=== PATIENT | male | born 1970 | race Caucasian/White ===

== ENCOUNTER → 2017-12-07 09:43 | Outpatient (CLI) | payer MEDICARE, SELFPAY ==
[2017-12-07 11:11] LABS: Rheumatoid Factor < 10.0 IU/mL (<15); Thyroid Stim Hormone (TSH) 2.73 uIU/mL (0.358-3.74)
[2017-12-08 09:45] LABS: Vitamin B12 188 pg/mL (211-911)
[2017-12-08 12:08] LABS: SJOGREN'S Anti-SS-A test < 0.2 AI (0.0-0.9); SJOGREN'S Anti-SS-B test < 0.2 AI (0.0-0.9)
[2017-12-08 14:34] LABS: ANTINUCLEAR ANTIBODIES DIRECT Negative (Negative)
[2017-12-08 16:09] LABS: Albumin 3.6 g/dL (2.9-4.4); Alpha-1-Globulins 0.2 g/dL (0.0-0.4); Alpha-2-Globulins 0.7 g/dL (0.4-1.0); Cytoplasmic Ab (C-ANCA) <1:20 titer (Neg:<1:20); Gamma Globulin 1.1 g/dL (0.4-1.8); Immunoglobulin A 276 mg/dL (90-386); Immunoglobulin G 1091 mg/dL (700-1600); Immunoglobulin M 101 mg/dL (20-172); PROEL- TOTAL PROTEIN 6.8 g/dL (6.0-8.5)
[2017-12-09 12:30] LABS: Perinuclear Ab (P-ANCA) <1:20 titer (Neg:<1:20)
== END ==
PROVIDERS: Family Provider Nurse Practitioner Family; PCP Nurse Practitioner Family; Visit Provider Psychiatry & Neurology Neurology
DX: G62.9 Polyneuropathy, unspecified (principal); Z79.899 Other long term (current) drug therapy
CPT/HCPCS: 36415; 82607; 82784; 83036; 84165; 84166; 84443; 86038; 86235; 86256; 86334; 86335; 86431

== ENCOUNTER → 2018-03-23 08:02 | Outpatient (CLI) | payer MEDICARE, SELFPAY ==
--- NOTE | 2018-03-23 09:43 | NEURO_ITS ---
NCS and/or EMG Patient Report Ordering Doctor: Torres Echeverria DATE OF SERVICE: 03/23/18 This is a bilateral lower extremity nerve conduction study and a right lower extremity EMG performed on this 48-year-old male with a remote history 18 years ago of a C5 injury with residual mild left-sided para-cysts. For the past year he has experienced nonspecific uncomfortable sensations in his feet on both sides symmetrically, improved temporarily with compression stockings. He says he is a borderline diabetic but is not sure of the numbers. He does admit to drinking alcohol occasionally to excess. Bilateral lower extremity nerve conduction study is performed. Sensory responses are intact bilaterally. The medial and lateral plantar responses are evaluated, the lateral plantar responses are absent bilaterally. Common peroneal motor and tibial motor distal latencies amplitudes and conduction velocities are intact. Tibial and common peroneal F waves are intact bilaterally, and the tibial H reflexes bilaterally are preserved. Right lower extremity needle electromyography is performed. Muscles evaluated included the extensor digitorum brevis, abductor hallicis, medial gastrocnemius , anterior tibialis, vastus lateralis and vastus medialis muscles. All muscles demonstrated normal insertional activity with absence of pathologic spontaneous activity. Motor unit potential movement pattern and amplitude is intact in all muscles tested. Impression: This is an essentially normal electrophysiologic study of the lower extremities however symptoms are consistent with mild likely small fiber neuropathy. This may be exacerbated by blood sugar abnormalities and/or significant alcohol intake.
== END ==
LOC: PSN 08:02
PROVIDERS: Family Provider Nurse Practitioner Family; PCP Nurse Practitioner Family; Visit Provider Psychiatry & Neurology Neurology
DX: G62.9 Polyneuropathy, unspecified (principal); R20.2 Paresthesia of skin; R20.0 Anesthesia of skin
CPT/HCPCS: 95886; 95912

== ENCOUNTER → 2018-11-01 07:05 | Outpatient (CLI) | payer MEDICARE, SELFPAY ==
--- NOTE | 2018-11-01 10:43 | NEURO ---
NCS and/or EMG Patient Report Ordering Doctor: Leonides Boateng DATE OF SERVICE: 11/01/18 This is a right upper extremity EMG and nerve conduction study performed on this 48-year-old male with a remote history of C5 injury. He now reports symptoms consistent with Raynaud's syndrome in his right index finger and borderline diabetes. Symptoms have been present for approximately 2 months. In February 2018 he underwent electrophysiology studies of his lower extremities which were normal however symptoms were felt to be consistent with small fiber neuropathy potentially exacerbated by blood sugar abnormalities and alcohol intake. Right upper extremity sensory motor nerve conduction studies performed demonstrating prolongation of the median motor and sensory distal latencies with mild reduction of the motor amplitudes and mild reduction of conduction velocities. The ulnar motor amplitudes across the elbow are reduced with reduced conduction velocities across the elbow and prolonged latencies across the elbow. The median and ulnar F-wave latencies demonstrate prolongation of the median F wave latency. Right upper extremity needle electrode mammography is performed. Muscles evaluated included the abductor pollicis brevis, first dorsal interosseous, brachioradialis, biceps, triceps and deltoid muscles. The abductor pollicis brevis as well as first dorsal interosseous muscles demonstrated large motor units however abnormal insertional activity was absent and pathologic spontaneous activity was absent. All other muscles tested were normal. There is no evidence of C8 radiculopathy. Impression: This is an abnormal elective his like study of the right upper tremor to consistent with both a moderate median neuropathy at the wrist as well as moderate ulnar neuropathy at the elbow. The presence of borderline blood sugar abnormalities as well as significant alcohol intake may be contributory factors.
== END ==
PROVIDERS: Family Provider Nurse Practitioner Family; PCP Nurse Practitioner Family; Referring Provider Nurse Practitioner Family; Visit Provider Nurse Practitioner Family
DX: R20.0 Anesthesia of skin (principal)
CPT/HCPCS: 95886; 95909

== ENCOUNTER 2020-04-02 06:29 | Emergency (ER) | payer MEDICARE, SELFPAY ==
--- NOTE | 2020-04-02 06:34 | CT_ITS ---
HISTORY: FALL, CONFUSION ADDITIONAL HISTORY: None provided. COMPARISON: None EXAMINATION/TECHNIQUE: CT Head or Brain W/O Contrast Injection. Axial, coronal and sagittal images. Number of images including paperwork: 252. A radiation dose optimization technique was used for this scan. FINDINGS: BRAIN: No acute hemorrhage or mass. No definite acute infarct; MRI more sensitive. VENTRICULAR SYSTEM: No hydrocephalus. PARANASAL SINUSES AND MASTOIDS: Partial desiccation of the frontal, ethmoid and sphenoid sinuses. Small mucus retention cyst versus polyp in the left maxillary sinus. ORBITS: Unremarkable imaged extent. SKELETON AND SOFT TISSUES: Calvarium intact. ASPECTS score: Not applicable. CT/Brain/Head without Contrast IMPRESSION: No acute intracranial abnormality. Paranasal sinus disease. Individualized dose optimization techniques were used for this CT. at 0719 Reported and signed by: Destiney Segundo MD Electronically Signed: Destiney Segundo MD at 7:19 EDT Tel , Service support ,
--- NOTE | 2020-04-02 06:36 | CT_ITS ---
HISTORY: FALL, CONFUSION ADDITIONAL HISTORY: None provided COMPARISON: None TECHNIQUE: Noncontrast CT images of the cervical spine. 2D images were reviewed to aid in assessment of the cervical spine. A radiation dose optimization technique was used for this scan. Number of images including paperwork: [id number] FINDINGS: BONES: No acute fracture. No suspicious bone lesion. VERTEBRAL ALIGNMENT: No traumatic subluxation. Loss of normal cervical lordosis. DISCS AND JOINTS: C4-6 ACDF. Mild degenerative changes elsewhere. SPINAL CANAL AND FORAMINA: No critical canal stenosis. SOFT TISSUES: No prevertebral soft tissue swelling. No pathologic-appearing cervical adenopathy. LUNG APICES: Unremarkable. PARANASAL SINUSES: Unremarkable imaged portions if any. CT/Spine Cervical without Contras IMPRESSION: No acute osseous abnormality. Loss of normal cervical lordosis may be related to positioning or muscle spasm. Postoperative and degenerative changes. Individualized dose optimization techniques were used for this CT. at 0722 Reported and signed by: Destiney Segundo MD Electronically Signed: Destiney Segundo MD at 7:22 EDT Tel , Service support ,
[2020-04-02 06:37] VITALS: BP 163/99; PULSE 84; RESP 16; TEMP 36.2; O2SAT 98; BMI 41.4
--- NOTE | 2020-04-02 06:42 | ED.VIS.GEN ---
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 Reportedly the steps from his deck broke and he fell into an empty swimming pool. He is complaining of head and neck pain. He is not sure how long he laid there. He yelled for his who then called 911. Patient did have prior neck surgery 1998 secondary to a C5 burst fracture. He states he does have multiple levels plated. He has chronic left-sided weakness secondary to this prior injury. - Past Medical History (1) GERD (gastroesophageal reflux disease) Status: Chronic (2) Hypothyroid Status: Chronic Past Medical History - Allergies and Home Meds Allergies/Adverse Reactions: Allergies No Known Allergies Allergy (Verified 01/27/16 08:02) Primary Care Physician: Leonides Boateng, CLINICAL PHARMACOLOGIST-C [Primary Care Provider] - Prior records reviewed: Yes Past Medical History: - - GERD, hypothyroid, C5 burst fracture, chronic left-sided weakness, prior C-spine surgery. Lives: Spouse/ Significant Other Smoking Status: Current every day smoker Review of Systems General: Denies: Chills, Fever Eyes: Denies: Visual changes - bilaterally ENT: Denies: Bilateral ear pain Cardiovascular: Denies: Chest pain Respiratory: Denies: Dyspnea Gastrointestinal: Reports: Nausea. Denies: Abdominal pain Musculoskeletal: Reports: Neck pain. Denies: Extremity Pain Skin: Denies: Rash Neurological: Reports: Headache Hematologic: Denies: Easy bruising Allergy: Denies: Uticaria Physical Exam Inital Vital Signs reviewed: Yes General: Well nourished, Well developed Head: Normocephalic ENT: Moist mucous membranes Neck: Supple, - - Mild C-spine tenderness. C-collar in place. Cardiovascular: Regular rate, Regular rhythm Respiratory: No distress, CTA bilaterally Abdomen: Soft, Nontender Extremities: Nontender Skin: Normal color Neurological: Alert, Oriented x3, - - Left-sided weakness on testing which patient states is chronic and unchanged from baseline. Psychological: - - Anxious Diagnostic/Tx/Re-eval Impressions Brain CT 04/02/20 06:34 IMPRESSION: No acute intracranial abnormality. Paranasal sinus disease. Individualized dose optimization techniques were used for this CT. at 0719 Reported and signed by: Destiney Segundo MD Electronically Signed: Destiney Segundo MD at 7:19 EDT Tel , Service support , Cervical Spine CT 04/02/20 06:36 IMPRESSION: No acute osseous abnormality. Loss of normal cervical lordosis may be related to positioning or muscle spasm. Postoperative and degenerative changes. Individualized dose optimization techniques were used for this CT. at 0722 Reported and signed by: Destiney Segundo MD Electronically Signed: Destiney Segundo MD at 7:22 EDT Tel , Service support , 04/02/20 06:34 Brain/Head without Contrast [CT] Stat 04/02/20 06:36 CT Cervical [Spine Cervical without Contras] [CT] Stat Laboratory Results 04/02/20 04/02/20 04/02/20 06:44 06:44 06:44 WBC 9.0 RBC 5.09 Hgb 15.6 Hct 47.1 MCV 92.5 MCH 30.6 MCHC 33.1 RDW Std Deviation 44.2 H RDW Coeff of Melissa 13.2 Plt Count 287 MPV 9.5 Immature Gran % (Auto) 0.700 Neut % (Auto) 56.3 Lymph % (Auto) 33.7 [place] % (Auto) 7.7 Eos % (Auto) 1.3 Baso % (Auto) 0.3 Absolute Neuts (auto) 5.1 Absolute Lymphs (auto) 3.04 Nucleated RBC % 0 Sodium 142 Potassium 3.8 Chloride 107 Carbon Dioxide 27.0 Anion Gap 8 BUN 7 Creatinine 0.74 Estim Creat Clear Calc 130.02 Est GFR (MDRD) Af Amer 146 Est GFR (MDRD) Non-Af 120 BUN/Creatinine Ratio 9.5 L Glucose 145 H Calcium 8.8 Ethyl Alcohol 179.0 - Medical Decision Making 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 He was given Zofran for some mild nausea. Head and C-spine CTs are unremarkable. Patient is intoxicated with alcohol level in the 170s. Patient has been cleared from the c-collar. He will be observed until clinically sober. ED Disposition - Plan for ED Patient: Disposition: Home or Assisted Living Diagnosis: Fall Instructions: ED Mechanical Fall, ED Head Injury Adult, ED INTOXICATION Alcohol Referrals: Leonides Boateng, CLINICAL PHARMACOLOGIST-C [Primary Care Provider] -
[2020-04-02 06:49] VITALS: BP 125/86; PULSE 87; RESP 18; O2SAT 98
[2020-04-02 06:59] LABS: Absolute Lymphocyte Count 3.04 X10^3/uL (0.83-4.51); Absolute Neutrophil Count 5.1 X10^3/uL (2.0-7.7); Basophil# 0.03 X10^3/uL; Basophil% 0.3 % (0-1); Eosinophil# 0.12 X10^3/uL; Eosinophils% 1.3 % (0-5); Hematocrit 47.1 % (40-54); Hemoglobin 15.6 g/dL (13.0-16.5); Lymphocyte # 3.04 X10^3/ul (4.0); Lymphocyte % 33.7 % (19-41); Mean Corp Hgb Conc 33.1 g/dL (32-36); Mean Corpuscular Hgb 30.6 pg (27.0-32.0); Mean Corpuscular Volume 92.5 fL (80-94); Mean Platelet Vol. 9.5 fl (6.2-12.0); Monocyte# 0.69 X10^3/uL; Monocyte% 7.7 % (0-10); NRBC Flagged by Analyzer 0 % (0-5); Neutrophil # 5.07 X10^3/uL (2.7-7.7); Neutrophil % 56.3 % (47-70); Platelet Count 287 K/mm3 (150-450); RBC Distribution Width CV 13.2 % (11.6-14.6); RBC Distribution Width SD 44.2 fl (35.1-43.9); Red Blood Count 5.09 M/mm3 (4.6-6.2)
[2020-04-02] MEDS: Ondansetron 4 MG/2 ML Vial IV (07:04)
[2020-04-02 07:13] LABS: Anion Gap 8 (5-15); BUN 7 mg/dL (7-18); BUN/Creat Ratio 9.5 RATIO (10-20); Calcium,Total 8.8 mg/dL (8.5-10.1); Chloride 107 mmol/L (98-107); Creatinine, Serum 0.74 mg/dL (0.70-1.30); EST Glomerular Filtration Rate 120 mL/min (>60); Est Glom Filt Rate - Afr Amer 146 mL/min (>60); Estimated Creatinine Clearance 130.02 ml/min; Glucose 145 mg/dL (74-106); Potassium 3.8 mmol/L (3.5-5.1); Sodium Level 142 mmol/L (136-145)
[2020-04-02 07:37] VITALS: BP 137/90; PULSE 81; RESP 18; O2SAT 97
[2020-04-02] MEDS: Acetaminophen 500 MG Tablet 1000 MG PO (08:00)
--- NOTE | 2020-04-02 08:00 | ED.RN ---
pt remains intoxicated. at bedside. reports she will take responsibility for pt. reviewed dc instructions with . verbalizes understanding. pt aggitated, taking monitors off and took own iv out. verbalizes she feels safe and able to take care of him at home
== END 2020-04-02 08:00 | disposition home or self-care (01) ==
LOC: ED 07:36
PROVIDERS: Emergency Provider Emergency Medicine; PCP Nurse Practitioner Family
DX: M54.2 Cervicalgia (principal); R51 Headache; R53.1 Weakness; R11.0 Nausea; W10.9XXA Fall (on) (from) unspecified stairs and steps, initial encounter; Y93.9 Activity, unspecified; Y92.9 Unspecified place or not applicable; K21.9 Gastro-esophageal reflux disease without esophagitis; E03.9 Hypothyroidism, unspecified; Z79.899 Other long term (current) drug therapy; F17.200 Nicotine dependence, unspecified, uncomplicated
CPT/HCPCS: 70450; 72125; 80048; 80320; 85025; 96374; 99285; J7030; A4216; G0480; J2405

== ENCOUNTER → 2020-08-30 | Outpatient (CLI) | payer MEDICARE, SELFPAY | END | disposition home or self-care (01) | LOC: LABSPEC 14:49 | PROVIDERS: PCP Nurse Practitioner Family; Referring Provider Physician Assistant Surgical; Visit Provider Physician Assistant Surgical | DX: S91.101A Unspecified open wound of right great toe without damage to nail, initial encounter (principal) | CPT/HCPCS: 87070; 87075; 87077; 87186; 87205 ==

== ENCOUNTER 2022-02-25 11:00 | Outpatient (RCR) | payer MEDICARE, SELFPAY | END 2022-03-26 23:59 | LOC: DC 11:00 | PROVIDERS: PCP Nurse Practitioner Family; Referring Provider Physician Assistant Surgical; Visit Provider Physician Assistant Surgical | DX: E11.42 Type 2 diabetes mellitus with diabetic polyneuropathy (principal); E66.9 Obesity, unspecified; Z68.38 Body mass index [BMI] 38.0-38.9, adult | CPT/HCPCS: G0108 ==

== ENCOUNTER 2023-05-11 13:09 | Emergency (ER) | payer MEDICARE, SELFPAY ==
[2023-05-11 13:10] VITALS: BP 135/99; PULSE 89; RESP 16; TEMP 36.6; O2SAT 97; BMI 40.0
[2023-05-11 15:52] LABS: Absolute Lymphocyte Count 2.67 X10^3/uL (0.83-4.51); Absolute Neutrophil Count 3.8 X10^3/uL (2.0-7.7); Basophil# 0.04 X10^3/uL; Basophil% 0.5 % (0-1); Eosinophil# 0.17 X10^3/uL; Eosinophils% 2.3 % (0-5); Hematocrit 37.1 % (40-54); Hemoglobin 12.1 g/dL (13.0-16.5); Lymphocyte # 2.67 X10^3/ul (0.83-4.51); Lymphocyte % 36.6 % (19-41); Mean Corp Hgb Conc 32.6 g/dL (32-36); Mean Corpuscular Hgb 29.4 pg (27.0-32.0); Mean Corpuscular Volume 90.3 fL (80-94); Mean Platelet Vol. 9.1 fl (6.2-12.0); Monocyte# 0.56 X10^3/uL; Monocyte% 7.7 % (0-10); NRBC Flagged by Analyzer 0 % (0-5); Neutrophil # 3.82 X10^3/uL (2.7-7.7); Neutrophil % 52.5 % (47-70); Platelet Count 325 K/mm3 (150-450); RBC Distribution Width CV 12.5 % (11.6-14.6); RBC Distribution Width SD 40.9 fl (35.1-43.9); Red Blood Count 4.11 M/mm3 (4.6-6.2); White Blood Count 7.3 K/mm3 (4.4-11.0)
--- NOTE | 2023-05-11 15:53 | EDS_ITS ---
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 The patient states that is ridiculous, he does not want to kill himself or any of his family, he states why would I want to do that when my daughter just came home from college and my son just came home from an athletic training internship? He denies any physical symptoms right now. He is upset because he is here against as well. Apparently he was waiting for a bed to become available with police and he eloped, they found him eating at a restaurant next- door, brought him back. [facility] Medical History Chronic neck and back pain Diabetes HTN (hypertension) Knee pain Neck fracture Home Medications Famotidine 40 mg PO DAILY 04/02/20 [History Last Taken Unknown] amitriptyline 100 mg tablet 100 mg PO DAILY 04/02/20 [History Last Taken Unknown] duloxetine 60 mg capsule,delayed release 60 mg PO DAILY 04/02/20 [History Last Taken Unknown] meloxicam 15 mg tablet 15 mg PO DAILY 04/02/20 [History Last Taken Unknown] metformin 500 mg tablet 500 mg PO DAILY 04/02/20 [History Last Taken Unknown] omeprazole 40 mg capsule,delayed release 40 mg PO DAILY 04/02/20 [History Last Taken Unknown] sertraline 50 mg tablet 50 mg PO DAILY 04/02/20 [History Last Taken Unknown] tizanidine 4 mg capsule 4 mg PO TID PRN PRN Muscle Spasm 04/02/20 [History Last Taken Unknown] valsartan 80 mg tablet 80 mg PO DAILY 04/02/20 [History Last Taken Unknown] amoxicillin 875 mg-potassium clavulanate 125 mg tablet 1 tab PO BID #20 tabs 09/02/20 [Rx Last Taken Unknown] clindamycin HCl 300 mg capsule 300 mg PO TID #30 caps 09/04/20 [Rx Last Taken Unknown] Allergy/AdvReac Type Severity Reaction Status Date / Time No Known Allergies Allergy Verified 05/11/23 13:14 Surgical History (Updated 09/02/20 @ 08:06 by Tiffany Ellis) History of hernia repair History of knee surgery History of tonsillectomy Hx of cholecystectomy Social History Smoking Status: Current every day smoker alcohol intake: current Alcohol type: beer ROS ROS ED Constitutional Constitutional ED: Denies chills or fever(s) Eyes Eyes: Denies change in vision or diplopia ENT ENT ED: Denies rhinorrhea or sore throat Cardiovascular Cardiovascular: Denies chest pain or palpitations Respiratory/Chest Respiratory/Chest: Denies cough or dyspnea Gastrointestinal Gastrointestinal: Denies abdominal pain, diarrhea, nausea or vomiting Genitourinary Genitourinary ED: Denies dysuria or hematuria Musculoskeletal Musculoskeletal: Denies back pain or neck pain Integumentary Denies abscess or rash Neurologic Neurologic: Denies headache(s), paresthesias or weakness Psychiatric Psychiatric: Denies anxiety, suicidal ideation or suicidal thoughts EXAM Physical Exam Const Vital Signs: 05/11/23 13:10 Temperature 97.8 F Temperature Source Temporal Pulse Rate 89 Respiratory Rate 16 Blood Pressure 135/99 H Blood Pressure Mean 111 Pulse Ox 97 Oxygen Delivery Method Room Air Positive well nourished, well developed and obese General Appearance ED: well developed and NAD Nutritional Appearance: obese HEENT Reports moist mucous membranes normocephalic and atraumatic Eyes PERRL and EOMs intact bilaterally Neck full ROM and supple Resp normal respiratory effort and clear to auscultation bilaterally Cardio regular rate, regular rhythm and no murmurs GI non-tender and non-distended Auscultation: normoactive bowel sounds Palpation: soft Back/Spine no CVA tenderness General Back: other FROM Extremity normal to inspection General Extremety ED: Negative for edema, pulses abnormal or tenderness General Extremity: Negative for edema or pulses abnormal Neuro oriented x3, CN's II-XII intact bilaterally and no sensory deficits noted Sensorium / Orientation: awake and alert Motor Exam: strength 5/5 throughout Psych cooperative, speech normal, activity/motor behavior normal, denies hallucinations, denies homicidal ideation and denies suicidal ideation Psych Narrative: Patient is upset and frustrated he is here, seems to have insight understands 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 He is resistant to staff drawing his blood for medical clearance. Appearance: grossly normal and appropriate Attitude: calm Activity / Motor Behavior: appropriate eye contact Speech: normal speech Thought Process: normal thought process Skin no rashes or lesions noted and no wounds MDM MDM MDM Narrative Medical decision making narrative: Patient has alcohol level that is 121, otherwise he is medically cleared for crisis/social work evaluation who I discussed with. Social work evaluated the patient, similar story. Discussed with over the phone, she states that this is happened several times before when he has been intoxicated with alcohol. In the end, she states she is comfortable having him come back home, social work was able to safety plan the patient and we will discharge him advising follow-up. I am okay with this. Lab Data Attestation: I reviewed the patient's lab results. Labs: Laboratory Results - last 24 hr 05/11/23 15:44 WBC 7.3 RBC 4.11 L Hgb 12.1 L Hct 37.1 L MCV 90.3 MCH 29.4 MCHC 32.6 RDW Std Deviation 40.9 RDW Coeff of Melissa 12.5 Plt Count 325 MPV 9.1 Immature Gran % (Auto) 0.400 Neut % (Auto) 52.5 Lymph % (Auto) 36.6 [place] % (Auto) 7.7 Eos % (Auto) 2.3 Baso % (Auto) 0.5 Absolute Neuts (auto) 3.8 Absolute Lymphs (auto) 2.67 Nucleated RBC % 0 Sodium 140 Potassium 3.8 Chloride 106 Carbon Dioxide 26.0 Anion Gap 8 BUN 5 L Creatinine 0.79 Estim Creat Clear Calc 117.82 Est GFR (MDRD) Af Amer 132 Est GFR (MDRD) Non-Af 110 BUN/Creatinine Ratio 6.3 L Glucose 177 H Calcium 8.8 Total Bilirubin 0.30 AST 27 ALT 48 Alkaline Phosphatase 93 Total Protein 7.9 Albumin 3.5 Globulin 4.4 H Albumin/Globulin Ratio 0.8 L Ethyl Alcohol 121.0 Management 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 Discharge Plan Triage Chief Complaint: Suicidal ED Provider: Akil Owens Dx/Rx/DC Orders Clinical Impression: Acute reaction to situational stress, Alcohol intoxication Instructions: Social Drinking vs Problem Drinking Prescriptions: No Action amoxicillin-pot clavulanate 875-125 mg tablet 1 tab PO BID Qty: 20 0RF clindamycin HCl 300 mg capsule 300 mg PO TID Qty: 30 0RF Rx Instructions: Stop Augmentin at this time metformin 500 MG tablet 500 mg PO DAILY meloxicam 15 MG tablet 15 mg PO DAILY valsartan 80 MG tablet 80 mg PO DAILY omeprazole 40 MG capsule,delayed release(DR/EC) 40 mg PO DAILY sertraline 50 MG tablet 50 mg PO DAILY amitriptyline 100 MG tablet 100 mg PO DAILY duloxetine 60 MG capsule 60 mg PO DAILY tizanidine 4 MG capsule 4 mg PO TID PRN PRN (Reason: Muscle Spasm) Famotidine 40 MG tablet 40 mg PO DAILY Primary Care Provider: Leonides Boateng NP Referrals: Counseling,Center [Group of Physicians] - Leonides Boateng NP, TRAFFIC SUPERINTENDENT-C [Primary Care Provider] - Disposition Disposition: Home, Self Care
[2023-05-11 16:11] LABS: ALB/GLOB Ratio 0.8 RATIO (0.9-2.4); AST(SGOT) 27 U/L (15-37); Alanine Aminotransfer ALT/SGPT 48 U/L (16-61); Albumin, Serum 3.5 g/dL (3.2-5.0); Alkaline Phosphatase 93 U/L (45-117); Anion Gap 8 (5-15); BUN 5 mg/dL (7-18); BUN/Creat Ratio 6.3 RATIO (10-20); Calcium,Total 8.8 mg/dL (8.5-10.1); Chloride 106 mmol/L (98-107); Creatinine, Serum 0.79 mg/dL (0.70-1.30); EST Glomerular Filtration Rate 110 mL/min (>60); Est Glom Filt Rate - Afr Amer 132 mL/min (>60); Estimated Creatinine Clearance 117.82 ml/min; Globulin 4.4 g/dL (2.2-4.2); Glucose 177 mg/dL (74-106); Potassium 3.8 mmol/L (3.5-5.1); Protein, Total 7.9 g/dL (6.4-8.2); Sodium Level 140 mmol/L (136-145)
--- NOTE | 2023-05-11 19:00 | CM.ED ---
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 ?? Demographics: Patient is a 53-year-old who identifies as heterosexual male. Patient has been for 28 years and reports living alone with his , with three adult children living outside of the home. Patient reports having his GED and is unemployed due to disability. Mental Health Treatment/ History: Patient reports no current MH services but was court ordered for a mental health evaluation and is struggling with scheduling. Patient reports his PCP prescribes anti-depressants and patient is med compliant. Patient states he had a counselor years ago. Supports/ Resources: Pt reports his is his main support. Triggers/ stressors: Patient reports no recent stressors, explaining his son is visiting from college and his daughter is coming to visit with patient?s newest grandchild. ? Legal Issues: Patient reports being on probation with [employer] ?? Coping Skills: Patient explained he enjoys spending time with his dogs. ? Abuse History: ? Patient denies. Substance Abuse Hx: Alcohol use reports by patient?s . ??? Risk to Self/Others: ? Suicidal: Patient denies SI and denies previous SI. ? Homicidal: Patient denied ? Violence: Patient denied. ? Mental Status Exam: ? Orientation x4 ? Memory: good ? Appearance:? appropriate ? Mood/ affect: Patient is angry due to being at the hospital. ? Communication Pattern: Patient responds to questions but is short. ? Thought Process: Patient denies A/V Hallucinations ? General Intellectual Functioning: average Judgement: fair Insight: fair? Assessment: SW met with MD Owens, prior to assessment and reviewed symptoms and current concerns. recommending further evaluation and collaboration with patient?s . SW met with patient and introduced herself and role as [facility] Fish Bait Picker. Patient was agreeable to speak to social work. SW then utilized open and close ended questions to gather information for patient?s assessment. Patient was receptive and cooperative, however patient voiced being frustrated with being at the hospital because he did not make threats to hurt himself or anyone else. Patient denies previous SI/HI and denies A/V Hallucinations. Patient reports known diagnosis of depression and is prescribed anti-depressants by his PCP. Patient states he is future oriented as his son is visiting from college and his daughter is coming to visit with his newest grandchild. SW inquired about contacting patient?s , patient agreeable. SW contacted patient?s and introduced self and role as [facility] SW. Patient?s was agreeable to speak with SW. SW inquired about recent events as well as safety concerns. Patient?s initially states ?I will say that he said he was going to hurt himself but it was the alcohol talking. He doesn?t need to go to a psychiatric hospital?. SW further inquired about safety concerns and reviewed other possible recommendations. Patient?s confirmed he is court ordered for a MH assessment but the patient and the agency have both had to reschedule. Patient?s then states patient did make statements about wanting to hurt her and himself, however, patient?s reports the patient ?doesn?t know what he is saying, he wouldn?t do anything?. Patient?s explained the patient drinks alcohol and can get angry but typically sleeps it off. SW again inquired about any safety concerns; patient?s voiced no concerns and states the patient is able to return home with no issues. SW reviewed information with MD Owens, agreeable to safety plan and resources. SW met with patient and reviewed recommendation for safety plan and resources; patient agreeable. Verbal safety plan completed, patient reports he will spend time with his dogs to decompress and can talk to his if he is struggling with MH. Patient reports having hunting rifles in a gun safe. SW reviewed safe ways to remove weapons including contacting trusted individuals or [place] [employer] to have guns removed, patient voiced understanding but states he doesn?t trust people with his belongings. SW reviewed MH crisis contact information as well as community agencies. Patient voiced understanding and has no questions. ? Care team updated of plan. Plan: verbal safety plan home, resources provided Jazmyn GAR, KEV
[2023-05-11 19:06] VITALS: BP 168/121; PULSE 81; RESP 20
== END 2023-05-11 19:27 | disposition home or self-care (01) ==
PROVIDERS: Emergency Provider Emergency Medicine; PCP Nurse Practitioner Family; Visit Provider Emergency Medicine
DX: F10.129 Alcohol abuse with intoxication, unspecified (principal); E11.9 Type 2 diabetes mellitus without complications; I10 Essential (primary) hypertension; F17.200 Nicotine dependence, unspecified, uncomplicated; F43.0 Acute stress reaction; Z79.84 Long term (current) use of oral hypoglycemic drugs; Z79.899 Other long term (current) drug therapy; Z90.49 Acquired absence of other specified parts of digestive tract; Y90.6 Blood alcohol level of 120-199 mg/100 ml
CPT/HCPCS: 80053; 82077; 85025; 87811; 99285

== ENCOUNTER 2023-05-18 07:58 | Outpatient (REF) | payer SELFPAY ==
[2023-05-18 07:59] VITALS: TEMP 36.6
[2023-05-18 08:12] VITALS: BP 165/104; PULSE 108; RESP 16; TEMP 36.5; O2SAT 95; BMI 39.9
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
== END 2023-05-18 08:43 ==
LOC: ED 07:58
PROVIDERS: PCP Nurse Practitioner Family; Visit Provider Emergency Medicine
DX: F10.129 Alcohol abuse with intoxication, unspecified (principal); E11.9 Type 2 diabetes mellitus without complications; I10 Essential (primary) hypertension; F17.210 Nicotine dependence, cigarettes, uncomplicated; Z79.84 Long term (current) use of oral hypoglycemic drugs; Z79.899 Other long term (current) drug therapy; Z90.49 Acquired absence of other specified parts of digestive tract

== ENCOUNTER → 2024-12-19 | Outpatient (CLI) | payer MEDICARE, SELFPAY ==
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
[2024-12-19 13:38] LABS: CREATININE FINGERSTICK < 1.0 mg/dL (0.70-1.30); EGFR FINGERSTICK > 60.0000 mL/min (>60)
== END | disposition home or self-care (01) ==
LOC: CT 12:44
PROVIDERS: PCP Nurse Practitioner Family; Referring Provider Student in an Organized Health Care Education/Training Program; Visit Provider Student in an Organized Health Care Education/Training Program
DX: R10.9 Unspecified abdominal pain (principal)
CPT/HCPCS: 74177; Q9967

== ENCOUNTER 2025-03-27 11:28 | Day surgery (SDC) | payer MEDICARE, SELFPAY ==
[2025-03-27] VITALS (8 sets, daily range): BP systolic 109–148; BP diastolic 79–99; PULSE 76–89; RESP 16–18; TEMP 36.6–37; O2SAT 95–97; BMI 41.5
[2025-03-27] MEDS: Lactated Ringers 1,000 ML 15 ML IV (12:20)
--- NOTE | 2025-03-27 12:45 | EGD_PTH ---
PATIENT: ANGEL MACHUCA LOC: EN U#:[id number] AGE/SX: 55/M ROOM: RE03/27/[address]: Dr. Ryland Merino DO : 1970 BED: DIS: 03/27/2025 SPEC #: [id number] RECD: 03/27/25 15:38 STATUS: HERBERT ANNA #: [id number] KAYLEY: 03/27/25 12:[address]: Ryland Merino DEPT: SURGICAL PATHOLOGY RECD BY: Cole Ruiz ENTERED: 03/28/25 10:43 SP TYPE: EGD BIOPSY BRITTNI DR: Leonides Boateng, DIRECTOR-C Tissues: A - Esophagus, NOS B - Duodenum, NOS C - Gastric mucous membrane D - Gastric mucous membrane Procedures: Immunohistochemical Stains Surgery Specimen Level IV HEADER OPERATION: Colonoscopy, EGD, biopsy PRE-OP DIAGNOSIS: Abdominal pain, GERD, Swann's esophagus, constipation, screening TISSUE SUBMITTED: A- Distal esophagus biopsy, B- Duodenum biopsy, C- Gastric antrum biopsy,D- Gastric polyp in the cardia MICROSCOPIC DIAGNOSIS A. 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 Small intestine, duodenum: * Benign without active inflammation C. Stomach, antrum: * Pyloric mucosa with slight chronic inflammation * An immunohistochemical stain for Helicobacter pylori is negative D. Stomach, polyp in the cardia: * Benign inflammatory polyp A. MICROSCOPIC DESCRIPTION Slides are reviewed. All matched controls reacted appropriately. These tests were developed and their performance characteristics determined by [facility]. They may not have been cleared or approved by the U.S. Food and Drug Administration. The FDA has determined that such clearance or approval is not necessary. The above immunohistochemical/dualISH markers are viewed by the Pathologist. GROSS DESCRIPTION A. Received in fixative is one container labeled with the patient's name and designated Distal esophagus biopsy. The specimen consists of multiple irregular fragments of light guardado tissue that in aggregate measure <0.1 to 0.2 cm. The specimen is totally submitted in one cassette. B. Received in fixative is one container labeled with the patient's name and designated Duodenum biopsy. The specimen consists of three irregular fragments of light guardado tissue that in aggregate measure <0.1 to 0.4 cm. The specimen is totally submitted in one cassette. C. Received in fixative is one container labeled with the patient's name and designated Gastric antrum biopsy. The specimen consists of two irregular fragments of light guardado tissue that in aggregate measure 0.2 and 0.8 cm. The specimen is totally submitted in one cassette. D. Received in fixative is one container labeled with the patient's name and designated Gastric polyp in cardia. The specimen consists of multiple irregular fragments of light guardado tissue that in aggregate measure 0.2 to 0.5 cm. The specimen is totally submitted in one cassette. Sabrina 03/28/2025 CPT:21552g0,32357
--- NOTE | 2025-03-27 12:45 | EGD_PTH ---
PATIENT: ANGEL MACHUCA LOC: EN U#:[id number] AGE/SX: 55/M ROOM: RE03/27/[address]: Dr. Ryland Merino DO : 1970 BED: DIS: 03/27/2025 SPEC #: [id number] RECD: 03/27/25 15:38 STATUS: HERBERT ANNA #: [id number] KAYLEY: 03/27/25 12:[address]: Ryland Merino DEPT: SURGICAL PATHOLOGY RECD BY: Cole Ruiz ENTERED: 03/28/25 10:43 SP TYPE: EGD BIOPSY BRITTNI DR: Leonides Boateng, MANUFACTURING CONTROLLER-C Tissues: A - Esophagus, NOS B - Duodenum, NOS C - Gastric mucous membrane D - Gastric mucous membrane Procedures: Immunohistochemical Stains Surgery Specimen Level IV HEADER OPERATION: Colonoscopy, EGD, biopsy PRE-OP DIAGNOSIS: Abdominal pain, GERD, Swann's esophagus, constipation, screening TISSUE SUBMITTED: A- Distal esophagus biopsy, B- Duodenum biopsy, C- Gastric antrum biopsy,D- Gastric polyp in the cardia MICROSCOPIC DIAGNOSIS A. 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 Small intestine, duodenum: * Benign without active inflammation C. Stomach, antrum: * Pyloric mucosa with slight chronic inflammation * An immunohistochemical stain for Helicobacter pylori is negative D. Stomach, polyp in the cardia: * Benign inflammatory polyp A. MICROSCOPIC DESCRIPTION Slides are reviewed. All matched controls reacted appropriately. These tests were developed and their performance characteristics determined by [facility]. They may not have been cleared or approved by the U.S. Food and Drug Administration. The FDA has determined that such clearance or approval is not necessary. The above immunohistochemical/dualISH markers are viewed by the Pathologist. GROSS DESCRIPTION A. Received in fixative is one container labeled with the patient's name and designated Distal esophagus biopsy. The specimen consists of multiple irregular fragments of light guardado tissue that in aggregate measure <0.1 to 0.2 cm. The specimen is totally submitted in one cassette. B. Received in fixative is one container labeled with the patient's name and designated Duodenum biopsy. The specimen consists of three irregular fragments of light guardado tissue that in aggregate measure <0.1 to 0.4 cm. The specimen is totally submitted in one cassette. C. Received in fixative is one container labeled with the patient's name and designated Gastric antrum biopsy. The specimen consists of two irregular fragments of light guardado tissue that in aggregate measure 0.2 and 0.8 cm. The specimen is totally submitted in one cassette. D. Received in fixative is one container labeled with the patient's name and designated Gastric polyp in cardia. The specimen consists of multiple irregular fragments of light guardado tissue that in aggregate measure 0.2 to 0.5 cm. The specimen is totally submitted in one cassette. Sabrina 03/28/2025 CPT:92332w9,17723
--- NOTE | 2025-03-27 12:47 | PCM.HP.STD ---
[facility] - General General Date of Admission: 03/27/25 Date of Service: 03/27/25 Chief Complaint: Abdominal pain, Swann's esophagus, GERD, constipation and screening colonoscopy HPI Narrative ANGEL MACHUCA, is a 55 M who presents for the evaluation of abdominal pain, Swann's esophagus, GERD, constipation and screening colonoscopy. Over the past months pt has had left sided abd pain that is intermittent and crampy. He admits that the pain can radiate to his flank. He has not been able to identity and triggering or alleviating factors. Passing gas can sometimes provide relief. He typically has a bm 1-2 per week. He broke his neck about 25 years ago and since then has struggled with urination and bowel movements. He denies any new medications, lifestyle changes or diet changes since this started. He smokes and drinks on occasion. Pt has never had a colonoscopy. He has a PMHx of Barrets esophagus but is unsure when is last EGD was. [facility] Medical History Weakness Depression Marijuana use Alcohol use Arthritis Difficulty swallowing Edentulism, complete Wsann esophagus History of hiatal hernia Gastric reflux Vapes nicotine containing substance Shortness of breath on exertion Muscle spasm History of edema History of pain when walking Chronic constipation Neuropathic pain DANIEL (generalized anxiety disorder) Vitamin D deficiency Restless legs syndrome (RLS) Hyperlipidemia Chronic neck and back pain Diabetes HTN (hypertension) Home Medications ?Medication ?Instructions ?Recorded ?Last Taken ?Type Famotidine 40 mg PO DAILY 04/02/20 Unknown History amitriptyline 100 mg tablet 100 mg PO QHS 04/02/20 Unknown History duloxetine 60 mg capsule,delayed 60 mg PO DAILY 04/02/20 03/27/25 History release metformin 500 mg tablet 500 mg PO DAILY 04/02/20 Unknown History sertraline 50 mg tablet 50 mg PO DAILY 04/02/20 03/27/25 History tizanidine 4 mg capsule 4 mg PO TID PRN PRN Muscle Spasm 04/02/20 Unknown History valsartan 80 mg tablet 80 mg PO DAILY 04/02/20 Unknown History acetaminophen 325 mg tablet 650 mg PO Q4H PRN pain 08/16/24 Unknown History atorvastatin 20 mg tablet 20 mg PO QHS 08/16/24 Unknown History cholecalciferol (vitamin D3) 125 125 mcg PO QDAY 08/16/24 Unknown History mcg (5,000 unit) capsule gabapentin 300 mg capsule 600 mg PO BID 08/16/24 03/27/25 History magnesium oxide 250 mg PO QDAY 08/16/24 Unknown History mecobalamin (vitamin B12) 1,000 1,000 mcg PO QDAY 08/16/24 Unknown History mcg chewable tablet naproxen 500 mg tablet 500 mg PO BID PRN pain 08/16/24 Unknown History omega-3 fatty acids 1,000 mg 1,000 mg PO QDAY 08/16/24 Unknown History capsule pantoprazole 40 mg granules 40 mg PO QDAY 08/16/24 03/27/25 History delayed-release for susp in packet ropinirole 1 mg tablet 1 mg PO QHS 08/16/24 Unknown History zinc sulfate 50 mg zinc (220 mg) 50 mg PO QDAY 08/16/24 Unknown History tablet dicyclomine 10 mg capsule 10 mg PO BID #30 caps 11/21/24 Unknown Rx Allergy/AdvReac Type Severity Reaction Status Date / Time No Known Allergies Allergy Verified 03/27/25 11:59 Family History Mother Diabetes Hypertension CVA (cerebral vascular accident) Surgical History History of cervical discectomy Hx of esophagogastroduodenoscopy History of knee surgery Hx of cholecystectomy History of tonsillectomy History of hernia repair Social History household members: spouse current occupational status: disabled Smoking Status: Current every day smoker tobacco type: cigarettes and smokeless tobacco alcohol intake: current alcohol intake frequency: a few times a week Alcohol type: beer substance use type: does not use ROS Constitutional Constitutional: Denies fatigue, fever(s), poor appetite, weight gain or weight loss Gastrointestinal Gastrointestinal: Denies belching, bloating, change in bowel habits, change in stool character, chewing difficulty, coffee ground emesis, constipation, cramping, diarrhea, dyspepsia, dysphagia, early satiety, excessive flatus, fecal incontinence, heartburn, hematemesis, hematochezia, hemorrhoids, loose stools, melena, nausea, odynophagia, rectal bleeding, tenesmus, vomiting or weight changes Vital Signs Vital Signs Vital Signs: 03/27/25 12:11 03/27/25 12:11 Temperature 97.8 F Temperature Source Temporal Pulse Rate 89 Respiratory Rate 18 Respiratory Pattern Normal Blood Pressure 148/91 H Blood Pressure Mean 110 Blood Pressure Source Monitor Blood Pressure Position Sitting Blood Pressure Location Left Arm Pulse Ox 97 Oxygen Delivery Method Room Air Weight Weight: 297 lb 9.985 oz Body Mass Index (BMI) 41.5 Physical Exam Const alert, oriented x3, no apparent distress and healthy appearing General Appearance: cooperative GI normal to inspection, nondistended, normoactive bowel sounds, soft to palpation, non-tender and non-distended Percussion: normal to percussion Rectal Exam: deferred Results Lab / Micro Data Labs: Laboratory Results - last 24 hr 03/27/25 12:15: POC Glucose 190 H Assessment & Plan Assessment/Plan (1) Abdominal pain: (2) Encounter for screening for malignant neoplasm of colon: (3) GERD (gastroesophageal reflux disease): PLAN: Assessment and Plan Assessment and Plan (1) Abdominal symptoms: (2) Abdominal pain: Status: Acute Plan: This is a 54 yo male pt here today for evaluation of left sided abd pain x1 month. Pt has not had prior work up for this. I will start work up with CT abd/pelvis. He will undergo colonoscopy and EGD. He has never had a screening colonoscopy. I will prescribe him dicyclomine 10 mg BID PRN for abd cramping. He mentions a PMHx of Swann esophagus. He will undergo EGD as well. -Colonoscopy and EGD -CT abd/pelvis -Dicyclmine PRN Orders: Orders Abdomen/Pelvis WITH Contrast Today R10.9 - Unspecified abdominal pain
--- NOTE | 2025-03-27 12:52 | PCM.PRE.AN2 ---
ASA Classification* ASA Classification ASA Classification: 3 Assessment & Plan Anesthesia* Anesthesia Assessment Anesthesia Assessment: Discussed sedation and/or anesthesia options, risks, benefits, and alternatives with patient/parents/legal guardian/POA. Questions invited. The patient/parents/legal guardian/POA seems to understand and agrees to proceed with anesthesia plan. Reviewed the physical assessment, medical history, allergy history and patient home medications list prior to surgery/procedure/anesthetic and documented any changes. Performed airway and anesthesia risk assessments. Anesthesia Type Anesthesia Type: MAC History Source History Obtained from:: Patient and Chart Anesthesia Focused Assessment* Temperature: 97.8 F Pulse Rate: 89 Blood Pressure: 148/91 Respiratory Rate: 18 Pulse Ox: 97 Airway Assessment Mouth opens: >3 cm Mallampati Score: II Labs Anesthesia Preop lab: CBC WBC 7.3 K/mm3 (4.4-11.0) 05/11/23 15:44 05/11/23 RBC 4.11 M/mm3 (4.6-6.2) L 05/11/23 15:44 05/11/23 Hgb 12.1 g/dL (13.0-16.5) L 05/11/23 15:44 05/11/23 Hct 37.1 % (40-54) L 05/11/23 15:44 05/11/23 Plt Count 325 K/mm3 (150-450) 05/11/23 15:44 05/11/23 CHEMISTRY Potassium 3.8 mmol/L (3.5-5.1) 05/11/23 15:44 05/11/23 Sodium 140 mmol/L (136-145) 05/11/23 15:44 05/11/23 BUN 5 mg/dL (7-18) L 05/11/23 15:44 05/11/23 Creatinine 0.79 mg/dL (0.70-1.30) 05/11/23 15:44 05/11/23 Glucose 177 mg/dL (74-106) H 05/11/23 15:44 05/11/23 POC Glucose 190 mg/dL (74-106) H 03/27/25 12:15 03/27/25 TSH 2.73 uIU/mL (0.358-3.74) 12/07/17 09:56 12/07/17 COAG Pre-Assessment Diagnosis/Proposed Procedure Planned Operative Procedure(s): EGD/CSCOPE Anesthesia History Anesthesia History - transitional care nurse: Anesthesia History - transitional care nurse Hx Hospitalization No 03/23/25 11:16 Any Problems With Anesthesia No 03/23/25 11:16 Cholinesterase deficiency No 03/23/25 11:16 You/Your Family Experience No 03/23/25 11:16 fever (hyperthermia) with Relationship Recent Exposure to Contagious No 03/27/25 12:11 Disease Does patient have nerve No 03/23/25 11:16 stimulator Patient instructed to have device shut off --Does patient have Pacemaker No 03/27/25 12:11 or ICD? When Was Last Pacemaker Check QUESTION #4 FULL TEXT: You/Your Family Experience fever (hyperthermia) with Anesthesia Last Oral Intake Last Oral intake: Last Oral Intake NPO since 09:30 03/27/25 12:11 Meds taken in AM with sips of Yes 03/27/25 12:11 water? Meds patient instructed to see medlist 03/27/25 12:11 take am of surgery PONV PONV - transitional care nurse: PONV - transitional care nurse Female No 03/23/25 11:16 HX of Motion Sickness No 03/23/25 11:16 HX of N/V After Surgery No 03/23/25 11:16 Non-Smoker No 03/23/25 11:16 Duration of Surgery greater No 03/23/25 11:16 than 60 minutes Number of Risk Factors PONV Score Height & Weight Height & Weight: Anesthesia: Height & Weight Height 5 ft 11 in 03/27/25 12:11 Weight: 135 kg 03/27/25 12:11 Body Mass Index (BMI) 41.5 03/27/25 12:11 Respiratory Assessment Respiratory Assessment - transitional care nurse: Respiratory Tract Infection Hx - transitional care nurse Hx Respiratory Tract Infection No 03/23/25 11:16 STOP Sleep Apnea STOP Sleep Apnea - transitional care nurse: STOP Sleep Apnea - transitional care nurse Hx Hypertension Yes: CONTROLLED WITH MED 03/23/25 11:16 Hx Sleep Apnea Yes 03/23/25 11:16 CPAP Yes 03/23/25 11:16 BIPAP No 03/23/25 11:16 Do you snore loudly (louder than talking or can be heard Do you often feel tired/ fatigued/ sleepy during daytime? Has anyone observed you stop breathing during sleep? STOP Results Positive 03/23/25 11:16 QUESTION #5 FULL TEXT : Do you snore loudly (louder than talking or can be heard through closed doors)? 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 Specify any problems Hx of Preganancy in last 3 N/A 03/23/25 11:16 Months Nurse Filling Out Transfusion DSCHRIBER 03/23/25 11:16 & Questions: Date: 03/23/25 03/23/25 11:16 Time: 11:17 03/23/25 11:16 Patient unable to answer at this time (ie. confused, unrespo /Reproduction History /Reproductive History - transitional care nurse: /Reproductive Hx- transitional care nurse Hx Now No 03/23/25 11:16 Gestational Age (in weeks): EDC: Hx Hx Para Hx Section SAB No 03/23/25 11:16 Active Medications Active Medications: Current Medications Generic Name Dose Route Start Last Admin Trade Name Freq PRN Reason Stop Dose Admin Lactated Ringer's 1,000 mls @ 15 mls/hr 03/27/25 11:45 03/27/25 12:20 IV 15 mls/hr .Q48H GRAEME Administration PFSH Medical History Weakness Depression Marijuana use Alcohol use Arthritis Difficulty swallowing Edentulism, complete Swann esophagus History of hiatal hernia Gastric reflux Vapes nicotine containing substance Shortness of breath on exertion Muscle spasm History of edema History of pain when walking Chronic constipation Neuropathic pain DANIEL (generalized anxiety disorder) Vitamin D deficiency Restless legs syndrome (RLS) Hyperlipidemia Chronic neck and back pain Diabetes HTN (hypertension) Home Medications ?Medication ?Instructions ?Recorded ?Last Taken ?Type Famotidine 40 mg PO DAILY 04/02/20 Unknown History amitriptyline 100 mg tablet 100 mg PO QHS 04/02/20 Unknown History duloxetine 60 mg capsule,delayed 60 mg PO DAILY 04/02/20 03/27/25 History release metformin 500 mg tablet 500 mg PO DAILY 04/02/20 Unknown History sertraline 50 mg tablet 50 mg PO DAILY 04/02/20 03/27/25 History tizanidine 4 mg capsule 4 mg PO TID PRN PRN Muscle Spasm 04/02/20 Unknown History valsartan 80 mg tablet 80 mg PO DAILY 04/02/20 Unknown History acetaminophen 325 mg tablet 650 mg PO Q4H PRN pain 08/16/24 Unknown History atorvastatin 20 mg tablet 20 mg PO QHS 08/16/24 Unknown History cholecalciferol (vitamin D3) 125 125 mcg PO QDAY 08/16/24 Unknown History mcg (5,000 unit) capsule gabapentin 300 mg capsule 600 mg PO BID 08/16/24 03/27/25 History magnesium oxide 250 mg PO QDAY 08/16/24 Unknown History mecobalamin (vitamin B12) 1,000 1,000 mcg PO QDAY 08/16/24 Unknown History mcg chewable tablet naproxen 500 mg tablet 500 mg PO BID PRN pain 08/16/24 Unknown History omega-3 fatty acids 1,000 mg 1,000 mg PO QDAY 08/16/24 Unknown History capsule pantoprazole 40 mg granules 40 mg PO QDAY 08/16/24 03/27/25 History delayed-release for susp in packet ropinirole 1 mg tablet 1 mg PO QHS 08/16/24 Unknown History zinc sulfate 50 mg zinc (220 mg) 50 mg PO QDAY 08/16/24 Unknown History tablet dicyclomine 10 mg capsule 10 mg PO BID #30 caps 11/21/24 Unknown Rx Allergy/AdvReac Type Severity Reaction Status Date / Time No Known Allergies Allergy Verified 03/27/25 11:59 Family History Mother Diabetes Hypertension CVA (cerebral vascular accident) Surgical History History of cervical discectomy Hx of esophagogastroduodenoscopy History of knee surgery Hx of cholecystectomy History of tonsillectomy History of hernia repair Social History household members: spouse current occupational status: disabled Smoking Status: Current every day smoker tobacco type: cigarettes and smokeless tobacco alcohol intake: current alcohol intake frequency: a few times a week Alcohol type: beer substance use type: does not use Review of Systems (Anesthesia) ROS Narrative System reviewed and no additional complaints, except as documented.
--- NOTE | 2025-03-27 12:52 | PCM.PRE.AN2 ---
ASA Classification* ASA Classification ASA Classification: 3 Assessment & Plan Anesthesia* Anesthesia Assessment Anesthesia Assessment: Discussed sedation and/or anesthesia options, risks, benefits, and alternatives with patient/parents/legal guardian/POA. Questions invited. The patient/parents/legal guardian/POA seems to understand and agrees to proceed with anesthesia plan. Reviewed the physical assessment, medical history, allergy history and patient home medications list prior to surgery/procedure/anesthetic and documented any changes. Performed airway and anesthesia risk assessments. Anesthesia Type Anesthesia Type: MAC History Source History Obtained from:: Patient and Chart Anesthesia Focused Assessment* Temperature: 97.8 F Pulse Rate: 89 Blood Pressure: 148/91 Respiratory Rate: 18 Pulse Ox: 97 Airway Assessment Mouth opens: >3 cm Mallampati Score: II Labs Anesthesia Preop lab: CBC WBC 7.3 K/mm3 (4.4-11.0) 05/11/23 15:44 05/11/23 RBC 4.11 M/mm3 (4.6-6.2) L 05/11/23 15:44 05/11/23 Hgb 12.1 g/dL (13.0-16.5) L 05/11/23 15:44 05/11/23 Hct 37.1 % (40-54) L 05/11/23 15:44 05/11/23 Plt Count 325 K/mm3 (150-450) 05/11/23 15:44 05/11/23 CHEMISTRY Potassium 3.8 mmol/L (3.5-5.1) 05/11/23 15:44 05/11/23 Sodium 140 mmol/L (136-145) 05/11/23 15:44 05/11/23 BUN 5 mg/dL (7-18) L 05/11/23 15:44 05/11/23 Creatinine 0.79 mg/dL (0.70-1.30) 05/11/23 15:44 05/11/23 Glucose 177 mg/dL (74-106) H 05/11/23 15:44 05/11/23 POC Glucose 190 mg/dL (74-106) H 03/27/25 12:15 03/27/25 TSH 2.73 uIU/mL (0.358-3.74) 12/07/17 09:56 12/07/17 COAG Pre-Assessment Diagnosis/Proposed Procedure Planned Operative Procedure(s): EGD/CSCOPE Anesthesia History Anesthesia History - patient access manager: Anesthesia History - patient access manager Hx Hospitalization No 03/23/25 11:16 Any Problems With Anesthesia No 03/23/25 11:16 Cholinesterase deficiency No 03/23/25 11:16 You/Your Family Experience No 03/23/25 11:16 fever (hyperthermia) with Relationship Recent Exposure to Contagious No 03/27/25 12:11 Disease Does patient have nerve No 03/23/25 11:16 stimulator Patient instructed to have device shut off --Does patient have Pacemaker No 03/27/25 12:11 or ICD? When Was Last Pacemaker Check QUESTION #4 FULL TEXT: You/Your Family Experience fever (hyperthermia) with Anesthesia Last Oral Intake Last Oral intake: Last Oral Intake NPO since 09:30 03/27/25 12:11 Meds taken in AM with sips of Yes 03/27/25 12:11 water? Meds patient instructed to see medlist 03/27/25 12:11 take am of surgery PONV PONV - patient access manager: PONV - patient access manager Female No 03/23/25 11:16 HX of Motion Sickness No 03/23/25 11:16 HX of N/V After Surgery No 03/23/25 11:16 Non-Smoker No 03/23/25 11:16 Duration of Surgery greater No 03/23/25 11:16 than 60 minutes Number of Risk Factors PONV Score Height & Weight Height & Weight: Anesthesia: Height & Weight Height 5 ft 11 in 03/27/25 12:11 Weight: 135 kg 03/27/25 12:11 Body Mass Index (BMI) 41.5 03/27/25 12:11 Respiratory Assessment Respiratory Assessment - patient access manager: Respiratory Tract Infection Hx - patient access manager Hx Respiratory Tract Infection No 03/23/25 11:16 STOP Sleep Apnea STOP Sleep Apnea - patient access manager: STOP Sleep Apnea - patient access manager Hx Hypertension Yes: CONTROLLED WITH MED 03/23/25 11:16 Hx Sleep Apnea Yes 03/23/25 11:16 CPAP Yes 03/23/25 11:16 BIPAP No 03/23/25 11:16 Do you snore loudly (louder than talking or can be heard Do you often feel tired/ fatigued/ sleepy during daytime? Has anyone observed you stop breathing during sleep? STOP Results Positive 03/23/25 11:16 QUESTION #5 FULL TEXT : Do you snore loudly (louder than talking or can be heard through closed doors)? 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 Specify any problems Hx of Preganancy in last 3 N/A 03/23/25 11:16 Months Nurse Filling Out Transfusion DSCHRIBER 03/23/25 11:16 & Questions: Date: 03/23/25 03/23/25 11:16 Time: 11:17 03/23/25 11:16 Patient unable to answer at this time (ie. confused, unrespo /Reproduction History /Reproductive History - patient access manager: /Reproductive Hx- patient access manager Hx Now No 03/23/25 11:16 Gestational Age (in weeks): EDC: Hx Hx Para Hx Section SAB No 03/23/25 11:16 Active Medications Active Medications: Current Medications Generic Name Dose Route Start Last Admin Trade Name Freq PRN Reason Stop Dose Admin Lactated Ringer's 1,000 mls @ 15 mls/hr 03/27/25 11:45 03/27/25 12:20 IV 15 mls/hr .Q48H GRAEME Administration PFSH Medical History Weakness Depression Marijuana use Alcohol use Arthritis Difficulty swallowing Edentulism, complete Swann esophagus History of hiatal hernia Gastric reflux Vapes nicotine containing substance Shortness of breath on exertion Muscle spasm History of edema History of pain when walking Chronic constipation Neuropathic pain DANIEL (generalized anxiety disorder) Vitamin D deficiency Restless legs syndrome (RLS) Hyperlipidemia Chronic neck and back pain Diabetes HTN (hypertension) Home Medications ?Medication ?Instructions ?Recorded ?Last Taken ?Type Famotidine 40 mg PO DAILY 04/02/20 Unknown History amitriptyline 100 mg tablet 100 mg PO QHS 04/02/20 Unknown History duloxetine 60 mg capsule,delayed 60 mg PO DAILY 04/02/20 03/27/25 History release metformin 500 mg tablet 500 mg PO DAILY 04/02/20 Unknown History sertraline 50 mg tablet 50 mg PO DAILY 04/02/20 03/27/25 History tizanidine 4 mg capsule 4 mg PO TID PRN PRN Muscle Spasm 04/02/20 Unknown History valsartan 80 mg tablet 80 mg PO DAILY 04/02/20 Unknown History acetaminophen 325 mg tablet 650 mg PO Q4H PRN pain 08/16/24 Unknown History atorvastatin 20 mg tablet 20 mg PO QHS 08/16/24 Unknown History cholecalciferol (vitamin D3) 125 125 mcg PO QDAY 08/16/24 Unknown History mcg (5,000 unit) capsule gabapentin 300 mg capsule 600 mg PO BID 08/16/24 03/27/25 History magnesium oxide 250 mg PO QDAY 08/16/24 Unknown History mecobalamin (vitamin B12) 1,000 1,000 mcg PO QDAY 08/16/24 Unknown History mcg chewable tablet naproxen 500 mg tablet 500 mg PO BID PRN pain 08/16/24 Unknown History omega-3 fatty acids 1,000 mg 1,000 mg PO QDAY 08/16/24 Unknown History capsule pantoprazole 40 mg granules 40 mg PO QDAY 08/16/24 03/27/25 History delayed-release for susp in packet ropinirole 1 mg tablet 1 mg PO QHS 08/16/24 Unknown History zinc sulfate 50 mg zinc (220 mg) 50 mg PO QDAY 08/16/24 Unknown History tablet dicyclomine 10 mg capsule 10 mg PO BID #30 caps 11/21/24 Unknown Rx Allergy/AdvReac Type Severity Reaction Status Date / Time No Known Allergies Allergy Verified 03/27/25 11:59 Family History Mother Diabetes Hypertension CVA (cerebral vascular accident) Surgical History History of cervical discectomy Hx of esophagogastroduodenoscopy History of knee surgery Hx of cholecystectomy History of tonsillectomy History of hernia repair Social History household members: spouse current occupational status: disabled Smoking Status: Current every day smoker tobacco type: cigarettes and smokeless tobacco alcohol intake: current alcohol intake frequency: a few times a week Alcohol type: beer substance use type: does not use Review of Systems (Anesthesia) ROS Narrative System reviewed and no additional complaints, except as documented.
--- NOTE | 2025-03-27 13:40 | PCM.POST.ANE ---
Anesthesia: Postop Eval I Current Vital Signs Temperature: 97.9 F Pulse Rate: 77 Blood Pressure: 126/79 Respiratory Rate: 16 Pulse Ox: 97 Oxygen Delivery Method: Room Air Assessment Airway patent: Yes Spontaneous unlabored respirations: Yes Mental status: Awake and Calm nausea: No Vomiting: No Anesthesia Complication: No Fluid Hydration Crystalloid volume administer (ml): 800 Total IV fluid infused: 800 Progress Note Anesthesia document: Postop Eval 1 completed: Yes
--- NOTE | 2025-03-27 13:45 | OP.CCLET_ITS ---
03/27/2025 Leonides Boateng Re : Upper GI endoscopy procedure for Camilo Kim Kilo This procedure was performed on Thursday, March 27, 2025. My impressions and recommendations are as follows: Impressions : - Esophageal mucosal changes consistent with long-segment Swann's esophagus. Biopsied. - Bile gastritis. Biopsied. - Erythematous duodenopathy. Recommendations : - Discharge patient to home. - Resume previous diet. - Continue present medications. - Await pathology results. My findings are described in the full procedure note, which is enclosed. If I can be of further assistance, please feel free to contact me at . Sincerely, Ryland Merino, 03/27/2025 1:44:42 PM This report has been signed electronically.
--- NOTE | 2025-03-27 13:45 | OP.EGD_ITS ---
Patient Name: Camilo Bird Procedure Date: 03/27/2025 12:48 PM Date of : 1970 Age: 55 Procedure: Upper GI endoscopy Indications: Epigastric abdominal pain, Functional Dyspepsia, Heartburn Providers: Ryland Merino DO Referring MD: Leonides Boateng Medicines: Monitored Anesthesia Care Patient Profile: This is a 55 year old male. Refer to note in patient chart for documentation of history and physical. Patient has symptoms of acute abdominal cramping, chronic abdominal distention, chronic heartburn and chronic odynophagia. Complications: No immediate complications. Procedure: Pre-Anesthesia Assessment: - Prior to the procedure, a History and Physical was performed, and patient medications and allergies were reviewed. The patient is competent. The risks and benefits of the procedure and the sedation options and risks were discussed with the patient. All questions were answered and informed consent was obtained. Patient identification and proposed procedure were verified by the physician in the pre-procedure area. Mental Status Examination: alert and oriented. Airway Examination: normal oropharyngeal airway and neck mobility. Respiratory Examination: clear to auscultation. CV Examination: normal. Prophylactic Antibiotics: The patient does not require prophylactic antibiotics. Prior Anticoagulants: The patient has taken no anticoagulant or antiplatelet agents except for NSAID medication. ASA Grade Assessment: II - A patient with mild systemic disease. After reviewing the risks and benefits, the patient was deemed in satisfactory condition to undergo the procedure. The anesthesia plan was to use monitored anesthesia care (MAC). Immediately prior to administration of medications, the patient was re-assessed for adequacy to receive sedatives. The heart rate, respiratory rate, oxygen saturations, blood pressure, adequacy of pulmonary ventilation, and response to care were monitored throughout the procedure. The physical status of the patient was re-assessed after the procedure. After obtaining informed consent, the endoscope was passed under direct vision. Throughout the procedure, the patient's blood pressure, pulse, and oxygen saturations were monitored continuously. The Colonoscope was introduced through the mouth, and advanced to the fourth part of the duodenum. Small bowel enteroscopy was deemed necessary. The upper GI endoscopy was accomplished without difficulty. The patient tolerated the procedure well. Scope In: 1:05:04 PM Scope Out: 1:13:56 PM Total Procedure Duration Time 0 hours 8 minutes 52 seconds Findings: There were esophageal mucosal changes consistent with long-segment Swann's esophagus present in the entire esophagus. Mucosa was biopsied with a cold forceps for histology randomly at intervals of 1 cm in the upper third of the esophagus, in the middle third of the esophagus and in the lower third of the esophagus. One specimen bottle was sent to pathology. Verification of patient identification for the specimen was done. Estimated blood loss was minimal. Patchy mild inflammation characterized by erosions and erythema was found in the gastric antrum. Biopsies were taken with a cold forceps for histology. Verification of patient identification for the specimen was done. Estimated blood loss was minimal. Biopsies were taken with a cold forceps for Helicobacter pylori testing. Verification of patient identification for the specimen was done. Estimated blood loss was minimal. Patchy mildly erythematous mucosa without active bleeding and with no stigmata of bleeding was found in the duodenal bulb and in the second portion of the duodenum. Impression: - Esophageal mucosal changes consistent with long-segment Swann's esophagus. Biopsied. - Bile gastritis. Biopsied. - Erythematous duodenopathy. Recommendation: - Discharge patient to home. - Resume previous diet. - Continue present medications. - Await pathology results. Procedure Code(s): --- Professional --- 69454, Small intestinal endoscopy, enteroscopy beyond second portion of duodenum, not including ileum; with biopsy, single or multiple CPT copyright 2021 [employer]. All rights reserved. The codes documented in this report are preliminary and upon construction services technician review may be revised to meet current compliance requirements. Ryland Merino DO 03/27/2025 1:44:42 PM This report has been signed electronically. Number of Addenda: 0 Note Initiated On: 03/27/2025 12:48 PM
--- NOTE | 2025-03-27 13:45 | OP.EGD_ITS ---
Patient Name: Camilo Bird Procedure Date: 03/27/2025 12:48 PM Date of : 1970 Age: 55 Procedure: Upper GI endoscopy Indications: Epigastric abdominal pain, Functional Dyspepsia, Heartburn Providers: Ryland Merino DO Referring MD: Leonides Boateng Medicines: Monitored Anesthesia Care Patient Profile: This is a 55 year old male. Refer to note in patient chart for documentation of history and physical. Patient has symptoms of acute abdominal cramping, chronic abdominal distention, chronic heartburn and chronic odynophagia. Complications: No immediate complications. Procedure: Pre-Anesthesia Assessment: - Prior to the procedure, a History and Physical was performed, and patient medications and allergies were reviewed. The patient is competent. The risks and benefits of the procedure and the sedation options and risks were discussed with the patient. All questions were answered and informed consent was obtained. Patient identification and proposed procedure were verified by the physician in the pre-procedure area. Mental Status Examination: alert and oriented. Airway Examination: normal oropharyngeal airway and neck mobility. Respiratory Examination: clear to auscultation. CV Examination: normal. Prophylactic Antibiotics: The patient does not require prophylactic antibiotics. Prior Anticoagulants: The patient has taken no anticoagulant or antiplatelet agents except for NSAID medication. ASA Grade Assessment: II - A patient with mild systemic disease. After reviewing the risks and benefits, the patient was deemed in satisfactory condition to undergo the procedure. The anesthesia plan was to use monitored anesthesia care (MAC). Immediately prior to administration of medications, the patient was re-assessed for adequacy to receive sedatives. The heart rate, respiratory rate, oxygen saturations, blood pressure, adequacy of pulmonary ventilation, and response to care were monitored throughout the procedure. The physical status of the patient was re-assessed after the procedure. After obtaining informed consent, the endoscope was passed under direct vision. Throughout the procedure, the patient's blood pressure, pulse, and oxygen saturations were monitored continuously. The Colonoscope was introduced through the mouth, and advanced to the fourth part of the duodenum. Small bowel enteroscopy was deemed necessary. The upper GI endoscopy was accomplished without difficulty. The patient tolerated the procedure well. Scope In: 1:05:04 PM Scope Out: 1:13:56 PM Total Procedure Duration Time 0 hours 8 minutes 52 seconds Findings: There were esophageal mucosal changes consistent with long-segment Swann's esophagus present in the entire esophagus. Mucosa was biopsied with a cold forceps for histology randomly at intervals of 1 cm in the upper third of the esophagus, in the middle third of the esophagus and in the lower third of the esophagus. One specimen bottle was sent to pathology. Verification of patient identification for the specimen was done. Estimated blood loss was minimal. Patchy mild inflammation characterized by erosions and erythema was found in the gastric antrum. Biopsies were taken with a cold forceps for histology. Verification of patient identification for the specimen was done. Estimated blood loss was minimal. Biopsies were taken with a cold forceps for Helicobacter pylori testing. Verification of patient identification for the specimen was done. Estimated blood loss was minimal. Patchy mildly erythematous mucosa without active bleeding and with no stigmata of bleeding was found in the duodenal bulb and in the second portion of the duodenum. Impression: - Esophageal mucosal changes consistent with long-segment Swann's esophagus. Biopsied. - Bile gastritis. Biopsied. - Erythematous duodenopathy. Recommendation: - Discharge patient to home. - Resume previous diet. - Continue present medications. - Await pathology results. Procedure Code(s): --- Professional --- 80767, Small intestinal endoscopy, enteroscopy beyond second portion of duodenum, not including ileum; with biopsy, single or multiple CPT copyright 2021 [employer]. All rights reserved. The codes documented in this report are preliminary and upon fast food crew lead review may be revised to meet current compliance requirements. Ryland Merino DO 03/27/2025 1:44:42 PM This report has been signed electronically. Number of Addenda: 0 Note Initiated On: 03/27/2025 12:48 PM
--- NOTE | 2025-03-27 13:46 | OP.COLON_ITS ---
Patient Name: Camilo Bird Procedure Date: 03/27/2025 1:14 PM Date of : 1970 Age: 55 Procedure: Colonoscopy Indications: Screening for colorectal malignant neoplasm Providers: Ryland Merino DO Referring MD: Leonides Boateng Medicines: Monitored Anesthesia Care Patient Profile: This is a 55 year old male. Refer to note in patient chart for documentation of history and physical. Patient has symptoms of acute abdominal cramping, chronic abdominal distention, chronic heartburn and chronic odynophagia. Last Colonoscopy: none. The patient's first colonoscopy is today. Complications: No immediate complications. Procedure: Pre-Anesthesia Assessment: - Prior to the procedure, a History and Physical was performed, and patient medications and allergies were reviewed. The patient is competent. The risks and benefits of the procedure and the sedation options and risks were discussed with the patient. All questions were answered and informed consent was obtained. Patient identification and proposed procedure were verified by the physician in the pre-procedure area. Mental Status Examination: alert and oriented. Airway Examination: normal oropharyngeal airway and neck mobility. Respiratory Examination: clear to auscultation. CV Examination: normal. Prophylactic Antibiotics: The patient does not require prophylactic antibiotics. Prior Anticoagulants: The patient has taken no anticoagulant or antiplatelet agents except for NSAID medication. ASA Grade Assessment: II - A patient with mild systemic disease. After reviewing the risks and benefits, the patient was deemed in satisfactory condition to undergo the procedure. The anesthesia plan was to use monitored anesthesia care (MAC). Immediately prior to administration of medications, the patient was re-assessed for adequacy to receive sedatives. The heart rate, respiratory rate, oxygen saturations, blood pressure, adequacy of pulmonary ventilation, and response to care were monitored throughout the procedure. The physical status of the patient was re-assessed after the procedure. After I obtained informed consent, the scope was passed under direct vision. Throughout the procedure, the patient's blood pressure, pulse, and oxygen saturations were monitored continuously. The Colonoscope was introduced through the anus and advanced to the cecum, identified by appendiceal orifice and ileocecal valve. The colonoscopy was performed without difficulty. The patient tolerated the procedure well. The quality of the bowel preparation was adequate. The ileocecal valve, appendiceal orifice, and rectum were photographed. Scope In: 1:16:08 PM Scope Withdrawal Time 0 hours 8 minutes 13 seconds Scope Out: 1:30:27 PM Total Procedure Duration Time 0 hours 14 minutes 19 seconds Findings: The perianal and digital rectal examinations were normal. A few small-mouthed diverticula were found in the recto-sigmoid colon and sigmoid colon. The exam was otherwise without abnormality on direct and retroflexion views. Impression: - Diverticulosis in the recto-sigmoid colon and in the sigmoid colon. - The examination was otherwise normal on direct and retroflexion views. - No specimens collected. Recommendation: - Discharge patient to home. - Resume previous diet. - Continue present medications. - Repeat colonoscopy in 10 years for screening purposes. Procedure Code(s): --- Professional --- 39486, Colonoscopy, flexible; diagnostic, including collection of specimen(s) by brushing or washing, when performed (separate procedure) CPT copyright 2021 [employer]. All rights reserved. The codes documented in this report are preliminary and upon biomedical equipment specialist review may be revised to meet current compliance requirements. Ryland Merino DO 03/27/2025 1:46:00 PM This report has been signed electronically. Number of Addenda: 0 Note Initiated On: 03/27/2025 1:14 PM
--- NOTE | 2025-03-27 13:46 | OP.COLON_ITS ---
Patient Name: Camilo Bird Procedure Date: 03/27/2025 1:14 PM Date of : 1970 Age: 55 Procedure: Colonoscopy Indications: Screening for colorectal malignant neoplasm Providers: Ryland Merino DO Referring MD: Leonides Boateng Medicines: Monitored Anesthesia Care Patient Profile: This is a 55 year old male. Refer to note in patient chart for documentation of history and physical. Patient has symptoms of acute abdominal cramping, chronic abdominal distention, chronic heartburn and chronic odynophagia. Last Colonoscopy: none. The patient's first colonoscopy is today. Complications: No immediate complications. Procedure: Pre-Anesthesia Assessment: - Prior to the procedure, a History and Physical was performed, and patient medications and allergies were reviewed. The patient is competent. The risks and benefits of the procedure and the sedation options and risks were discussed with the patient. All questions were answered and informed consent was obtained. Patient identification and proposed procedure were verified by the physician in the pre-procedure area. Mental Status Examination: alert and oriented. Airway Examination: normal oropharyngeal airway and neck mobility. Respiratory Examination: clear to auscultation. CV Examination: normal. Prophylactic Antibiotics: The patient does not require prophylactic antibiotics. Prior Anticoagulants: The patient has taken no anticoagulant or antiplatelet agents except for NSAID medication. ASA Grade Assessment: II - A patient with mild systemic disease. After reviewing the risks and benefits, the patient was deemed in satisfactory condition to undergo the procedure. The anesthesia plan was to use monitored anesthesia care (MAC). Immediately prior to administration of medications, the patient was re-assessed for adequacy to receive sedatives. The heart rate, respiratory rate, oxygen saturations, blood pressure, adequacy of pulmonary ventilation, and response to care were monitored throughout the procedure. The physical status of the patient was re-assessed after the procedure. After I obtained informed consent, the scope was passed under direct vision. Throughout the procedure, the patient's blood pressure, pulse, and oxygen saturations were monitored continuously. The Colonoscope was introduced through the anus and advanced to the cecum, identified by appendiceal orifice and ileocecal valve. The colonoscopy was performed without difficulty. The patient tolerated the procedure well. The quality of the bowel preparation was adequate. The ileocecal valve, appendiceal orifice, and rectum were photographed. Scope In: 1:16:08 PM Scope Withdrawal Time 0 hours 8 minutes 13 seconds Scope Out: 1:30:27 PM Total Procedure Duration Time 0 hours 14 minutes 19 seconds Findings: The perianal and digital rectal examinations were normal. A few small-mouthed diverticula were found in the recto-sigmoid colon and sigmoid colon. The exam was otherwise without abnormality on direct and retroflexion views. Impression: - Diverticulosis in the recto-sigmoid colon and in the sigmoid colon. - The examination was otherwise normal on direct and retroflexion views. - No specimens collected. Recommendation: - Discharge patient to home. - Resume previous diet. - Continue present medications. - Repeat colonoscopy in 10 years for screening purposes. Procedure Code(s): --- Professional --- 39717, Colonoscopy, flexible; diagnostic, including collection of specimen(s) by brushing or washing, when performed (separate procedure) CPT copyright 2021 [employer]. All rights reserved. The codes documented in this report are preliminary and upon label coder review may be revised to meet current compliance requirements. Ryland Merino DO 03/27/2025 1:46:00 PM This report has been signed electronically. Number of Addenda: 0 Note Initiated On: 03/27/2025 1:14 PM
--- NOTE | 2025-03-27 13:47 | OP.CCLET_ITS ---
03/27/2025 Leonides Boateng Re : Colonoscopy procedure for Camilo Kim Kilo This procedure was performed on Thursday, March 27, 2025. My impressions and recommendations are as follows: Impressions : - Diverticulosis in the recto-sigmoid colon and in the sigmoid colon. - The examination was otherwise normal on direct and retroflexion views. - No specimens collected. Recommendations : - Discharge patient to home. - Resume previous diet. - Continue present medications. - Repeat colonoscopy in 10 years for screening purposes. My findings are described in the full procedure note, which is enclosed. If I can be of further assistance, please feel free to contact me at . Sincerely, Ryland Merino, 03/27/2025 1:46:00 PM This report has been signed electronically.
--- NOTE | 2025-03-27 15:35 | PCM.POSTANE2 ---
Anesthesia Postop Eval I Sum Postop Eval Completion status Anesthesia document: Postop Eval 1 completed: Yes Anesthesia Postop Eval I Summary Anesthesia Postop Eval I Summary: Anesthesia Postop Eval I: Assessment Summary Airway patent Yes 03/27/25 13:41 [email or web address] Spontaneous unlabored Yes 03/27/25 13:41 [email or web address] respirations Mental status Awake,Calm 03/27/25 13:41 [email or web address] nausea No 03/27/25 13:41 [email or web address] Vomiting No 03/27/25 13:41 [email or web address] Anesthesia Postop Eval I: Fluid Summary Crystalloid volume administer 800 03/27/25 13:41 [email or web address] (ml) Colloids volume administered ( ml) Blood Product volume administered (ml) Total IV fluid infused 800 03/27/25 13:41 [email or web address] Anesthesia Postop Eval I: Summary Notes Anesthesia Complication No 03/27/25 13:41 [email or web address] Anesthesia Complication Comment: Post-operative progress note Anesthesia: Postop Eval II Evaluation Mental status: Awake and Calm Pain Level: 3 nausea: No Vomiting: No Complications Anesthesia Complication: No
== END 2025-03-27 14:23 | disposition home or self-care (01) ==
LOC: EN 11:30 → AC 11:30
PROVIDERS: PCP Nurse Practitioner Family; Referring Provider Nurse Practitioner Family; Visit Provider Internal Medicine Gastroenterology
PROC: 0DJD8ZZ Inspection of Lower Intestinal Tract, Via Natural or Artificial Opening Endoscopic (ICD-10-PCS; CPT 45378; principal; 2025-03-27 12:40)
DX: Z12.11 Encounter for screening for malignant neoplasm of colon (principal); E11.40 Type 2 diabetes mellitus with diabetic neuropathy, unspecified; K57.30 Diverticulosis of large intestine without perforation or abscess without bleeding; K31.7 Polyp of stomach and duodenum; K29.50 Unspecified chronic gastritis without bleeding; K59.00 Constipation, unspecified; K21.9 Gastro-esophageal reflux disease without esophagitis; I10 Essential (primary) hypertension; E78.5 Hyperlipidemia, unspecified; F41.1 Generalized anxiety disorder; F17.210 Nicotine dependence, cigarettes, uncomplicated; F17.220 Nicotine dependence, chewing tobacco, uncomplicated; Z79.84 Long term (current) use of oral hypoglycemic drugs; Z79.899 Other long term (current) drug therapy
CPT/HCPCS: 43239; G0121; 82962; 88305; 88342; J2405

== ENCOUNTER → 2025-06-26 | Outpatient (CLI) | payer MEDICARE, SELFPAY ==
--- NOTE | 2025-06-26 16:22 | RAD_ITS ---
PROCEDURE: SHOULDER MIN 2 VIEWS 06/26/2025 REASON FOR EXAM: PAIN TECHNIQUE: Procedure Code: RADSH Modality: DX Procedure: SHOULDER MIN 2 VIEWS COMPARISON: None RAD/Shoulder min 2 Views IMPRESSION: No acute fracture or dislocations. Mild degenerative changes of the left should er. No acute soft tissue abnormalities. No radiographic foreign body. Cervical ACDF. Reading Location: [id number]
--- NOTE | 2025-06-26 16:22 | RAD_ITS ---
PROCEDURE: CERV SPINE 4 OR 5 VIEWS 06/26/2025 REASON FOR EXAM: CERVICAL SPONDYLOSIS TECHNIQUE: Procedure Code: [facility] Modality: DX Procedure: CERV SPINE 4 OR 5 VIEWS COMPARISON: CT cervical spine, 04/02/2020 FINDINGS: There are no compression fractures or subluxations. There is loss of the normal cervical lordosis. Status post ACDF, C4 through C6. There is multilevel facet arthropathy. There is no spondylolisthesis. The paravertebral soft tissues are normal. RAD/Cerv Spine 4 or 5 Views IMPRESSION: Status post ACDF C4 through C6. Reading Location: [place] [id number]
--- NOTE | 2025-06-26 16:22 | RAD_ITS ---
EXAM: XR Lumbosacral Spine Flexion/Extension Only, 2 or 3 Views CLINICAL INDICATION: LUMBAR SPONDYLOSIS TECHNIQUE: Lateral flexion/extension views of the lumbar spine and sacrum. COMPARISON: No relevant prior studies available. FINDINGS: VERTEBRAE: Moderate facet arthropathy of L4-S1. No acute fracture. Normal sagittal alignment. No instability. SACRUM/COCCYX: Unremarkable as visualized. No acute fracture. DISC SPACES: No acute findings. No significant narrowing. SOFT TISSUES: Unremarkable. RAD/L/S Spine Min 4 Views IMPRESSION: Degenerative changes as above. Reading Location: [id number]
== END | disposition home or self-care (01) ==
LOC: RAD 16:19
PROVIDERS: PCP Nurse Practitioner Family; Referring Provider Anesthesiology; Visit Provider Anesthesiology
DX: M25.512 Pain in left shoulder (principal); M47.812 Spondylosis without myelopathy or radiculopathy, cervical region; M47.816 Spondylosis without myelopathy or radiculopathy, lumbar region
CPT/HCPCS: 72050; 72110; 73030